=== PATIENT | female | born 1950 | race Caucasian/White ===

== ENCOUNTER 2017-08-27 09:51 | Day surgery (SDC) | payer BC ==
[~2017-08-27 09:51] MED LIST: Metoclopramide 10 MG/2 ML SDV IV PRN; Sodium Chloride 0.9% 1,000 ML IV SCH; Sodium Chloride 0.9% 10 ML Syringe FLUSH PRN
[2017-08-27] MEDS ORDERED: Propofol 200 MG/20 ML SDV ONE (12:10)
[2017-08-27] MEDS ORDERED: Midazolam 1 MG/ML 5 ML SDV ONE (12:10)
--- NOTE | 2017-08-27 16:11 | OR ---
DATE OF OPERATION: 08/27/2017 PREOPERATIVE DIAGNOSIS: Screening colonoscopy. POSTOPERATIVE DIAGNOSIS: Screening colonoscopy. PROCEDURE: Colonoscopy. ANESTHESIA: MAC. ESTIMATED BLOOD LOSS: None. COMPLICATIONS: None. INDICATIONS FOR THE PROCEDURE: The patient is a 67-year-old female, who last had a colonoscopy 10+ years ago, was normal per the patient. She has not had any change in bowel habits since then. She is here today for screening colonoscopy. DESCRIPTION OF PROCEDURE: Informed consent was obtained from the patient. The patient was taken to the operating room, placed on table in left lateral decubitus position. Monitored anesthesia care was administered. Digital rectal exam was normal. Colonoscope was then advanced through the anus and directed toward the cecum. Cecum was identified by visualization of appendiceal orifice and ileocecal valve. Colonoscope was then slowly withdrawn. No masses. No polyps. No areas of ischemia or inflammation were identified. The patient did have a few sigmoid diverticula. Retroflexion was performed in the rectum, which was also normal. Colonoscope was then removed. FINDINGS: Sigmoid diverticula. RECOMMENDATIONS: Would recommend repeat colonoscopy for screening purposes in 10 years. DARA/ANGELY /[id number]
== END 2017-08-27 14:00 | disposition home or self-care (01) ==
LOC: LB.SDS 09:51
PROVIDERS: ATTEND Surgery
DX: Z12.11 Encounter for screening for malignant neoplasm of colon (principal); K57.30 Diverticulosis of large intestine without perforation or abscess without bleeding; I10 Essential (primary) hypertension; E78.1 Pure hyperglyceridemia; Z79.899 Other long term (current) drug therapy
CPT/HCPCS: 45378; J2250; J2704; J7040

== ENCOUNTER 2019-02-26 20:27 | Emergency (ER) | payer OTHER, MEDICARE ==
[2019-02-26] MEDS ORDERED: LORazepam 1 MG Tab PO ONE (20:55)
[2019-02-26] MEDS ORDERED: diphenhydrAMINE 25 MG Cap PO ONE (21:29)
[2019-02-26] MEDS ORDERED: Cyclobenzaprine 10 MG Tab ONE (22:00)
[2019-02-26] MEDS ORDERED: traMADol 50 MG Tab ONE (22:00)
[2019-02-26] MEDS ORDERED: Naproxen 500 MG Tab ONE (22:00)
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
== END 2019-02-26 22:12 | disposition home or self-care (01) ==
LOC: LB.ED 20:27
DX: I10 Essential (primary) hypertension (principal); E11.9 Type 2 diabetes mellitus without complications; Z98.890 Other specified postprocedural states; Z79.899 Other long term (current) drug therapy
CPT/HCPCS: 99283; A0425; A0429; A9270

== ENCOUNTER 2021-05-04 15:15 | Emergency (ER) | payer MEDICARE, OTHER ==
--- NOTE | 2021-05-04 16:13 | EDM.PDOC ---
ED HPI GENERAL MEDICAL PROBLEM - General Chief Complaint: Respiratory Problem Stated Complaint: COVID Time Seen by Provider: 05/04/21 15:50 - History of Present Illness INITIAL COMMENTS - FREE TEXT/NARRATIVE: Pt is here to be tested for Covid. She has not felt well for a few days. Her tested positive 2 days ago in [place]. She has not been vaccinated. She feels tired with loss of appetite. No SOB or wheezing. 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: 2 miscarriages, parity: 5 Musculoskeletal History: Reports: Osteoarthritis, Other (See Below) Other Musculoskeletal History: left knee replaced 2.5 years ago Endocrine/Metabolic History: Reports: Diabetes, Gestational, Other (See Below) Other Endocrine/Metabolic History: patient is pre diabetic Oncologic (Cancer) History: Reports: None - Past Surgical History HEENT Surgical History: Reports: Tonsillectomy, Other (See Below) Other Cardiovascular Surgeries/Procedures: on meds for HTN Other Neurological Surgeries/Procedures: "arthritis in toes" Musculoskeletal Surgical History: Reports: Knee Replacement Social & Family History - Family History Family Medical History: No Pertinent Family History - Caffeine Use Caffeine Use: Reports: Coffee, Soda - Living Situation & Occupation Living situation: Reports: ED ROS GENERAL - Review of Systems Review Of Systems: Comprehensive ROS is negative, except as noted in HPI. Constitutional: Reports: Fatigue, Decreased Appetite ED EXAM, GENERAL - Physical Exam Exam: See Below Course - Vital Signs Last Recorded V/S: Last Vital Signs Temp 100.3 F 05/04/21 15:38 Pulse 89 05/04/21 15:38 Resp 20 05/04/21 15:38 BP Pulse Ox 90 L 05/04/21 15:38 - Orders/Labs/Meds Labs: Laboratory Tests 05/04/21 Range/Units 15:33 SARS CoV-2 RNA Rapid JOSE Positive H - Re-Assessments/Exams Free Text/Narrative Re-Assessment/Exam: 05/04/21 16:11 Covid test is positive. She agree's to take Regeneron in shot form in the car. I discussed home tx measures with her/ She does have a home O2 monitor - keep track of her O2 sats. Rest - use Tylenol for pain. Increase fluids with Call back with any questions, or come back if her condition gets worse. Departure - Departure Time of Disposition: 16:30 Disposition: Home, Self-Care 01 Condition: Good Clinical Impression: COVID-19 - Discharge Information *PRESCRIPTION DRUG MONITORING PROGRAM REVIEWED*: Yes *COPY OF PRESCRIPTION DRUG MONITORING REPORT IN PATIENT JAZMIN: Yes Referrals: PCP,None [Primary Care Provider] - Forms: ED Department Discharge Additional Instructions: Monitor symptoms at home closely, including checking O2 sats. Use Tylenol as needed for pain. Increase liquids using small frequent drinks. Call back with questions as needed. Come back if her condition gets worse. Sepsis Event Note (ED) - Evaluation Sepsis Screening Result: No Definite Risk - Focused Exam Vital Signs: Vital Signs Temp Pulse Resp Pulse Ox 05/04/21 15:38 100.3 F 89 20 90 L
== END 2021-05-04 17:05 | disposition home or self-care (01) ==
LOC: LB.ED 15:15
DX: U07.1 COVID-19 (principal); I10 Essential (primary) hypertension; Z79.899 Other long term (current) drug therapy
CPT/HCPCS: 99284-25; M0243; Q0243; U0002